=== PATIENT | female | born 1945 | race Hispanic/Latino ===

== ENCOUNTER 2019-10-24 15:51 | Emergency (ER) | payer MEDICARE ==
[~2019-10-24] VITALS: Ht 152.4 cm; Wt 77.1 kg
--- OUTSIDE RECORDS SUMMARY | 2019-10-24 15:54 | XMS REPORT ---
Author Author [facility] Address Unknown Phone Unavailable Care Team Providers Care Barrel Raiser Helper Name Role Phone NO, PCP PP Unavailable Bernadette HOFFMANN Unavailable Unavailable Problems This patient has no known problems. Allergies, Adverse Reactions, Alerts This patient has no known allergies or adverse reactions. Medications This patient has no known medications. Procedures and Interventions Procedure Date / Time Performed Performing Clinician Computed tomography of brain without radiopaque contrast 2018-07-26 00:00:00 ELIAS VAUGHN Computed tomography of cervical spine without contrast 2018-07-26 00:00:00 ELIAS VAUGHN Computed tomography of thoracic spine without contrast 2018-07-26 00:00:00 ELIAS VAUGHN X-ray of chest, two views 2018-07-26 00:00:00 ELIAS VAUGHN Encounters Start Date/Time End Date/Time Encounter Type Admission Type Attending Clinicians Care Facility Care Department Encounter ID 2018-08-20 00:00:00 2018-08-20 00:00:00 Outpatient [facility] [id number] 2018-07-26 14:30:00 2018-07-26 16:33:00 Departed Emergency Room 1 JOE HOFFMANN [facility] [id number] 2018-04-17 13:03:32 2018-04-17 13:03:32 Outpatient [facility] [id number] 2018-03-26 08:35:19 2018-03-26 08:35:19 Outpatient [facility] [id number] 2018-03-01 00:00:00 2018-03-01 00:00:00 Outpatient [facility] [id number] 2018-01-25 11:03:29 2018-01-25 11:03:29 Outpatient [facility] [id number] 2018-01-23 13:52:29 2018-01-23 13:52:29 Outpatient [facility] [id number] 2018-01-03 00:00:00 2018-01-03 00:00:00 Outpatient [facility] [id number] 2017-12-07 07:39:15 2017-12-07 07:39:15 Outpatient [facility] [id number] 2017-12-06 09:48:29 2017-12-06 09:48:29 Outpatient [facility] [id number] 2017-12-05 13:32:28 2017-12-05 13:32:28 Outpatient [facility] [id number] 2017-09-05 09:34:51 2017-09-05 09:34:51 Outpatient [facility] [id number] 2017-08-11 14:53:47 2017-08-11 14:53:47 Outpatient [facility] [id number] 2017-05-17 00:00:00 2017-05-17 00:00:00 Outpatient [facility] [id number] 2017-03-20 00:00:00 2017-03-20 00:00:00 Outpatient [facility] [id number] 2017-02-28 08:06:43 2017-02-28 08:06:43 Outpatient [facility] [id number] 2017-02-28 00:00:00 2017-02-28 00:00:00 Outpatient [facility] [id number] 2017-02-21 05:49:00 2017-02-21 05:49:00 Outpatient [facility] [id number] 2017-02-17 09:32:29 2017-02-17 09:32:29 Outpatient [facility] [id number] 2017-02-14 09:21:09 2017-02-14 09:21:09 Outpatient [facility] [id number] 2017-02-10 08:29:32 2017-02-10 08:29:32 Outpatient [facility] [id number] 2017-01-27 00:00:00 2017-01-27 00:00:00 Outpatient [facility] [id number] 2016-12-28 09:21:02 2016-12-28 09:21:02 Outpatient [facility] [id number] 2016-12-27 00:00:00 2016-12-27 00:00:00 Outpatient [facility] [id number] Results Test Description Test Time Test Comments Text Results Atomic Results Result Comments CHEST 2 VIEWS 2018-07-26 16:00:00 [facility] [address], [place] [address] Patient Name: MYRTLE LANG MR #: [id number] : 1945 Age/Sex: 72/F Req #: [id number] Adm Physician: Ordered by: ELIAS VAUGHN [employer]LL [employer] DIGGER Report #: [id number] Location: ER Room/Bed: Procedure: [id number] DX/CHEST 2 VIEWS Exam Date: 07/26/18 Exam Time: 1450 REPORT STATUS: Signed EXAMINATION: PA and lateral views of the chest. TROY RISON: None CLINICAL HISTORY: Fall, evaluate for fracture DISCUSSION: Lines/tubes: None. Lungs: The lungs are well inflated and clear. No pneumonia or pulmonary edema. Pleura: No pleural effusion or pneumothorax. Heart and mediastinum: The cardiomediastinal silhouette is normal. Bones and soft tissues: No acute bony abnormalities. IMPRESSION: No acute cardiopulmonary abnormalities. Signed by: Dr. Fabiola Scales M.D. on 07/26/2018 4:01 PM Dictated By: FABIOLA SCALES MD [id number] Transcribed By: TRENT on 07/26/18 1601 COPY TO: ELIAS VAUGHN BELL HOLE DIGGER CT THORACIC SPINE WO 2018-07-26 15:25:[address] [address] Patient Name: MYRTLE LANG MR #: [id number] : 1945 Age/Sex: 72/F Req #: [id number] Adm Physician: Ordered by: ELIAS VAUGHN [employer] DIGGER Report #: [id number] Location: ER Room/Bed: Procedure: [id number] CT/CT THORACIC SPINE WO Exam Date: 07/26/18 Exam Time: 1420 REPORT STATUS: Signed Exams: Head, cervical and thoracic spine CTs without IV contrast History: Trauma, fall, pain Comparison studies: None Technique: Axial images were obtained from the brain and cervical spine. Coronal and sagittal images reconstructed from the axial data. Dose modulation, iterative reconstruction, and/or weight based adjustment of the mA/kV was utilized to reduce the radiation dose to as low as reasonably achievable. Intravenous contrast: None Findings: Head CT: Scalp: No abnormalities. Bones: No fractures, blastic or lytic lesions. Extra-axial spaces: No masses. No fluid collections. Brain sulci: Appropriate for age. Ventricles: Normal in size and configuration. No hydrocephalus. Parenchyma: Incidental 2 mm calcification along the posterior right supramarginal gyrus without surrounding edema or mass effect compatible sequela of prior infection/inflammation. No other mass. No acute hemorrhage or acute or chronic cortical vascular infarcts. Sellar/suprasellar region: No abnormalities. Craniocervical junction: The foramen magnum is patent. No Chiari one malformation. Cervical spine CT: Fractures: None. Soft tissues: No gross acute abnormalities. Atlantoaxial articulation: Intact. Alignment: Straightened cervical curvature. Normal thoracic kyphosis. Mild upper thoracic curvature convex to the right. No subluxations. Cervicomedullary junction: No abnormalities. The foramen magnum is patent. Vertebrae: No infection or neoplasm. Cervical degenerative changes: Mildly degenerated disks from C4 to T1. Reactive degenerative endplate changes with mixed cystic and sclerotic changes at C4-C5 and at C5-C6. Mild cystic degenerative endplate changes along the posterior C7 endplate. Small disc osteophyte complexes from C4 to C7 indent the thecal sac do not result in significant canal stenosis. Mild uncovertebral arthrosis on the right at C4-C5 and bilaterally at C5-C6 without significant foraminal stenosis. Thoracic d egenerative changes: Mild multilevel disc degeneration. Few scattered small endplate Schmorl's nodes from T4 through T7 and at the included L1-L2 vertebral level. Patent canal and foramina. Incidental findings: Mild scattered calcified atherosclerosis. IMPRESSION: Head CT: No acute abnormalities. Cervical and thoracic spines: 1. No fracture or subluxation. 2. Mild multilevel degenerative changes as described. 3. Please note, cannot adequately evaluate ligament, spinal cord and or vascular abnormalities on the basis of this examination. Signed by: Dr. Neisha Cosby M.D. on 07/26/2018 3:40 PM Dictated By: NEISHA COSBY MD 1540 Transcribed By: TRENT on 07/26/18 1540 COPY TO: ELIAS VAUGHN NP CT CERVICAL SPINE WO 2018-07-26 15:25:00 [place] [address] Patient Name: MYRTLE LANG MR #: [id number] : 1945 Age/Sex: 72/F Req #: [id number] Adm Physician: Ordered by: ELIAS VAUGHN [employer] DIGGER Report #: [id number] Location: ER Room/Bed: Procedure: [id number] CT/CT CERVICAL SPINE WO Exam Date: 07/26/18 Exam Time: 1420 REPORT STATUS: Signed Exams: Head, cervical and thoracic spine CTs without IV contrast History: Trauma, fall, pain Comparison studies: None Technique: Axial images were obtained from the brain and cervical spine. Coronal and sagittal images reconstructed from the axial data. Dose modulation, iterative reconstruction, and/or weight based adjustment of the mA/kV was utilized to reduce the radiation dose to as low as reasonably achievable. Intravenous contrast: None Findings: Head CT: Scalp: No abnormalities. Bones: No fractures, blastic or lytic lesions. Extra-axial spaces: No masses. No fluid collections. Brain sulci: Appropriate for age. Ventricles: Normal in size and configuration. No hydrocephalus. Parenchyma: Incidental 2 mm calcification along the posterior right supramarginal gyrus without surrounding edema or mass effect compatible sequela of prior infection/inflammation. No other mass. No acute hemorrhage or acute or chronic cortical vascular infarcts. Sellar/suprasellar region: No abnormalities. Craniocervical junction: The foramen magnum is patent. No Chiari one malformation. Cervical spine CT: Fractures: None. Soft tissues: No gross acute abnormalities. Atlantoaxial articulation: Intact. Alignment: Straightened cervical curvature. Normal thoracic kyphosis. Mild upper thoracic curvature convex to the right. No subluxations. Cervicomedullary junction: No abnormalities. The foramen magnum is patent. Vertebrae: No infection or neoplasm. Cervical degenerative changes: Mildly degenerated disks from C4 to T1. Reactive degenerative endplate changes with mixed cystic and sclerotic changes at C4-C5 and at C5-C6. Mild cystic degenerative endplate changes along the posterior C7 endplate. Small disc osteophyte complexes from C4 to C7 indent the thecal sac do not result in significant canal stenosis. Mild uncovertebral arthrosis on the right at C4-C5 and bilaterally at C5-C6 without significant foraminal stenosis. Thoracic d egenerative changes: Mild multilevel disc degeneration. Few scattered small endplate Schmorl's nodes from T4 through T7 and at the included L1-L2 vertebral level. Patent canal and foramina. Incidental findings: Mild scattered calcified atherosclerosis. IMPRESSION: Head CT: No acute abnormalities. Cervical and thoracic spines: 1. No fracture or subluxation. 2. Mild multilevel degenerative changes as described. 3. Please note, cannot adequately evaluate ligament, spinal cord and or vascular abnormalities on the basis of this examination. Signed by: Dr. Neisha Cosby M.D. on 07/26/2018 3:40 PM Dictated By: NEISHA COSBY MD [id number] Transcribed By: TRENT on 07/26/18 3593 COPY TO: ELIAS VAUGHN NP CT BRAIN WO 2018-07-26 15:25:00 [facility] [address] [place] [address] Patient Name: MYRTLE LANG MR #: [id number] : 1945 Age/Sex: 72/F Req #: [id number] Adm Physician: Ordered by: ELIAS VAUGHN NP Report #: [id number] Location: ER Room/Bed: Procedure: [id number] CT/CT BRAIN WO Exam Date: 07/26/18 Exam Time: 1420 REPORT STATUS: Signed Exams: Head, cervical and thoracic spine CTs without IV contr ast History: Trauma, fall, pain Comparison studies: None Technique: Axial images were obtained from the brain and cervical spine. Coronal and sagittal images reconstructed from the axial data. Dose modulation, iterative reconstruction, and/or weight based adjustment of the mA/kV was utilized to reduce the radiation dose to as low as reasonably achievable. Intravenous contrast: None Findings: Head CT: Scalp: No abnormalities. Bones: No fractures, blastic or lytic lesions. Extra-axial spaces: No masses. No fluid collections. Brain sulci: Appropriate for age. Ventricles: Normal in size and configuration. No hydrocephalus. Parenchyma: Incidental 2 mm calcification along the posterior right supramarginal gyrus without surrounding edema or mass effect compatible sequela of prior infection/inflammation. No other mass. No acute hemorrhage or acute or chronic cortical vascular infarcts. Sellar/suprasellar region: No abnormalities. Craniocervical junction: The foramen magnum is patent. No Chiari one malformation. Cervical spine CT: Fractures: None. Soft tissues: No gross acute abnormalities. Atlantoaxial articulation: Intact. Alignment: Straightened cervical curvature. Normal thoracic kyphosis. Mild upper thoracic curvature convex to the right. No subluxations. Cervicomedullary junction: No abnormalities. The foramen magnum is patent. Vertebrae: No infection or neoplasm. Cervical degenerative changes: Mildly degenerated disks from C4 to T1. Reactive degenerative endplate changes with mixed cystic and sclerotic changes at C4-C5 and at C5-C6. Mild cystic degenerative endplate changes along the posterior C7 endplate. Small disc osteophyte complexes from C4 to C7 indent the thecal sac do not result in significant canal stenosis. Mild uncovertebral arthrosis on the right at C4-C5 and bilaterally at C5-C6 without significant foraminal stenosis. Thoracic degenerative changes: Mild multilevel disc degeneration. Few scattered small endplate Schmorl's nodes from T4 through T7 and at the included L1-L2 vertebral level. Patent canal and foramina. Incidental findings: Mild scattered calcified atherosclerosis. IMPRESSION: Head CT: No acute abnormalities. Cervical and thoracic spines: 1. No fracture or subluxation. 2. Mild multilevel degenerative changes as described. 3. Please note, cannot adequately evaluate ligament, spinal cord and or vascular abnormalities on the basis of this examination. Signed by: Dr. Neisha hayden M.D. on 07/26/2018 3:40 PM Dictated By: NEISHA COSBY MD 1544 Transcribed By: TRENT on 07/26/18 1540 COPY TO: ELIAS VAUGHN NP
--- NOTE | 2019-10-24 16:14 | NUR ---
BLOOD PRESSURE: RIGHT ARM - 209/86 LEFT ARM - 198/93
[2019-10-24] MEDS ORDERED: HYDRALAZINE HCL 20 MG/ML VIAL IV STA (16:21)
[2019-10-24 16:44] LABS: BASOPHILS % 0.3 % (0.0-1.0); EOSINOPHILS # (AUTO) 0.1 (0.0-0.4); EOSINOPHILS % 1.2 % (0.0-6.0); HEMATOCRIT 41.1 % (34.2-44.1); HEMOGLOBIN 14.5 g/dL (12.0-16.0); LYMPHOCYTES # (AUTO) 2.2 (1.0-3.2); LYMPHOCYTES % 28.5 % (18.0-39.1); MEAN CORPUSCULAR HGB CONC 35.3 g/dL (31-35); MONOCYTES # (AUTO) 0.6 (0.2-0.8); MONOCYTES % 7.2 % (4.4-11.3); NEUTROPHILS # (AUTO) 4.9 (2.1-6.9); NEUTROPHILS % 62.5 % (38.7-80.0); PLATELET COUNT 285 x10e3/uL (140-360); RED BLOOD COUNT 4.67 x10e6/uL (3.6-5.1); RED CELL DISTRIBUTION WIDTH 11.8 % (11.7-14.4)
[2019-10-24 17:04] LABS: ALANINE AMINOTRANSFERASE 35 IU/L (0-55); ALBUMIN/GLOBULIN RATIO 1.2 (0.8-2.0); ALKALINE PHOSPHATASE 75 IU/L (40-150); ANION GAP 12.5 mmol/L (8-16); BLOOD UREA NITROGEN 11 mg/dL (7-26); BUN/CREATININE RATIO 14 (6-25); CALCIUM 9.5 mg/dL (8.4-10.2); CARBON DIOXIDE 29 mmol/L (22-29); CHLORIDE 97 mmol/L (98-107); CREATINE KINASE 78 IU/L (29-168); CREATININE, SERUM 0.78 mg/dL (0.57-1.11); EST GLOMERULAR FILTRATION RATE > 60 ML/MIN (60-); GLUCOSE 142 mg/dL (74-118); POTASSIUM 3.5 mmol/L (3.5-5.1); SODIUM 135 mmol/L (136-145)
[2019-10-24] MEDS ORDERED: METOPROLOL TARTRATE INJ 1 MG/ML VIAL IV ONE (19:00)
--- NOTE | 2019-10-24 19:18 | Diagnostic Imaging Report ---
Examination: CT BRAIN WO CONTRAST History:Dizziness Comparison studies:None Technique: Axial images were obtained from the skull base to the vertex. Coronal and sagittal images reconstructed from the axial data. Dose modulation, iterative reconstruction, and/or weight based adjustment of the mA/kV was utilized to reduce the radiation dose to as low as reasonably achievable. Intravenous contrast: None Findings: Scalp: No abnormalities. Bones: No fractures, blastic or lytic lesions. Brain sulci: Appropriate for age. Ventricles: Normal in size and configuration. No hydrocephalus. Extra-axial space: No abnormalities. Parenchyma: No masses, hemorrhage, or acute or chronic cortical based vascular insults.. Sellar/suprasellar region: No abnormalities. Craniocervical junction: Patent foramen magnum. No Chiari one malformation. Incidental findings: Atherosclerotic calcification of the cavernous and supraclinoid internal carotid arteries. Impression: No acute intracranial abnormalities. Signed by: Dr. Saray Huerta M.D. on 10/24/2019 7:15 PM
[2019-10-24 19:34] VITALS: BP 134/68
== END 2019-10-24 19:42 | disposition home or self-care (01) ==
LOC: ER 15:51
DX: I10 Essential (primary) hypertension (principal); E78.5 Hyperlipidemia, unspecified; E03.9 Hypothyroidism, unspecified
CPT/HCPCS: 36415; 70450; 80053; 82550; 82553; 84484; 85025; 93005; 99284; J0360

== ENCOUNTER 2022-05-25 19:24 | Emergency (ER) | payer SELFPAY ==
[~2022-05-25] VITALS: Ht 152.4 cm; Wt 77.1 kg
[2022-05-25] MEDS ORDERED: NAPROSYN500 MG PO (20:07)
[2022-05-25] MEDS ORDERED: METHOCARBAMOL750 MG PO (20:07)
== END 2022-05-25 20:15 | disposition home or self-care (01) ==
LOC: ER 19:54
DX: M54.31 Sciatica, right side (principal); I10 Essential (primary) hypertension; E78.5 Hyperlipidemia, unspecified; E03.9 Hypothyroidism, unspecified
CPT/HCPCS: 99282